=== PATIENT | male | born 2000 | race Caucasian/White ===

== ENCOUNTER 2019-04-04 02:30 | Emergency (ER) | payer OTHER ==
[~2019-04-04] VITALS: Ht 195.6 cm; Wt 92.4 kg
[2019-04-04 02:33] VITALS: BP 140/82
--- NOTE | 2019-04-04 03:01 | NUR ---
pt refused CT.
--- NOTE | 2019-04-04 03:08 | NUR ---
PT REPORTS FALLING DOWN THE STAIRS AND HITTING HEAD WITH NO LOC
== END 2019-04-04 04:39 | disposition home or self-care (01) ==
LOC: ED 03:34
DX: S40.012A Contusion of left shoulder, initial encounter (principal); S09.90XA Unspecified injury of head, initial encounter; W10.9XXA Fall (on) (from) unspecified stairs and steps, initial encounter; Y93.89 Activity, other specified; Y92.098 Other place in other non-institutional residence as the place of occurrence of the external cause; Y99.8 Other external cause status
CPT/HCPCS: 99283